=== PATIENT | female | born 1965 | race Caucasian/White ===

== ENCOUNTER 2021-07-05 14:57 | Observation (INO) ==
[2021-07-05] MEDS ORDERED: Aspirin 81 MG TAB.CHEW PO ONE (16:01)
[2021-07-05] MEDS ORDERED: 0.9 % Sodium Chloride 500 ML IVC ONE (16:01)
[2021-07-05 17:12] LABS: Basophils # 0.1 K/mcL (0.0-0.2); Basophils % 0.5 %; Eosinophils # 0.1 K/mcL (0.0-0.6); Eosinophils % 1.2 %; Hematocrit 39.3 % (35.3-44.9); Hemoglobin 12.3 g/dL (11.5-15.4); Immature Granulocytes % 0.3 % (0-4); Lymphocytes # 1.2 K/mcL (0.6-4.6); Lymphocytes % 10.7 %; Mean Corpuscular HGB Conc 31.3 g/dL (31.6-35.5); Mean Corpuscular Hemoglobin 27.8 pg (28.0-33.3); Mean Corpuscular Volume 88.9 fL (83.0-100.0); Mean Platelet Volume 11.5 fL (9.4-12.4); Monocytes # 0.3 K/mcL (0.0-1.3); Monocytes % 2.9 %; Neutrophils # 9.1 K/mcL (1.6-8.9); Platelet Count 249 K/mcL (140-400); Red Blood Count 4.42 M/mcL (3.82-4.97); Red Cell Distribution Width 15.1 % (11.5-14.5); Segmented Neutrophils % 84.4 %; White Blood Count 10.8 K/mcL (4.3-11.1)
[2021-07-05 17:16] LABS: ABG Base Excess 2 mEq/L (-2 to 3); ABG HCO3 26 mEq/L (21-27); ABG Oxygen Saturation 96 % (95-98); ABG PCO2 38 mmHg (35-45); ABG PH 7.44 pH Units (7.32-7.45); ABG PO2 80 mmHg (85-104); ABG TCO2 27 mEq/L (20-26)
[2021-07-05 17:33] LABS: Alanine Aminotransferase 13 Units/L (7-52); Albumin 4.2 g/dL (3.5-5.7); Albumin/Globulin Ratio 1.6 (1.1-2.2); Alkaline Phosphatase 74 Units/L (34-104); Aspartate Amino Transferase 20 Units/L (13-39); BUN/Creatinine Ratio 31 (6-26); Bilirubin,Direct 0.1 mg/dL (0.0-0.2); Bilirubin,Indirect 0.6 mg/dL (0.0-1.0); Bilirubin,Total 0.7 mg/dL (0.3-1.0); Blood Urea Nitrogen 22 mg/dL (6-20); Carbon Dioxide 29 mEq/L (23-29); Chloride 104 mEq/L (98-107); Globulin 2.7 g/dL (2.4-3.5); Glucose 114 mg/dL (70-105); Lipase 11 Units/L (11-82); Osmolality,Calculated 300 (280-300); Sodium 143 mEq/L (136-145); Total Protein 6.9 g/dL (6.4-8.9); Troponin I 0.57 ng/mL (< 0.04); eGFR For African Americans > 60 (> 60); eGFR For Non-African Americans > 60 (> 60)
[2021-07-05] MEDS ORDERED: *HR* Heparin 5,000 UNIT/ML VIAL IVP PRN ×2 (17:42)
[2021-07-05] MEDS ORDERED: *HR* Heparin 5,000 UNIT/ML VIAL IVP ONE (17:42)
[2021-07-05] MEDS ORDERED: Heparin 25,000UNIT/250ML 1/2NS 25,000 UNIT/250 ML IV.SOLN IVC SCH (17:45)
[2021-07-05] MEDS ORDERED: Nitroglycerin 0.4 MG TAB.SUBL SL PRN (17:48)
[2021-07-05] MEDS ORDERED: Nitroglycerin 1 INCH/GM PACKET TP ONE (17:48)
[2021-07-05 17:52] LABS: Prothrombin Time 11.2 Seconds (9.4-12.1)
[2021-07-05 17:54] LABS: Activated Partial Thrombo Time 34.3 Seconds (26.0-36.0)
[2021-07-05] MEDS ORDERED: Acetaminophen 325 MG TABLET PO ONE (18:50)
[2021-07-05] MEDS ORDERED: Isovue-370 500 ML BOTTLE IVP ONE (19:55)
[2021-07-05] MEDS ORDERED: Naloxone 0.4 MG/ML INJ IVP PRN (20:04)
[2021-07-05] MEDS ORDERED: Ondansetron 4 MG/2 ML VIAL IVP PRN (20:04)
[2021-07-05] MEDS ORDERED: Acetaminophen 325 MG TABLET PO PRN (20:04)
[2021-07-05] MEDS ORDERED: Perflutren Lipid Microsphere 1.3 ML in 0.9 % Sodium Chloride 8.7 ML IVP PRN (20:10)
[2021-07-05] MEDS: Morphine Sulfate 2 MG/ML SYRINGE IVP PRN (21:37)
[2021-07-05] MEDS: Gabapentin 300 MG CAPSULE PO SCH (21:37)
[2021-07-05] MEDS: lisinopriL 20 MG TABLET PO SCH (21:37)
[2021-07-05 23:08] LABS: Heparin anti-factor XA UFH 0.33 IU/mL (0.30-0.70); Prothrombin Time 11.4 Seconds (9.4-12.1)
[2021-07-05] MEDS ORDERED: *HR* LORazepam 2 MG/ML VIAL IVP ONE (23:41)
[2021-07-06 02:17] LABS: Folate > 22.3 ng/mL (3.0-16.0); Vitamin B12 358 pg/mL (250-1100)
[2021-07-06 06:23] LABS: Hematocrit 41.5 % (35.3-44.9); Hemoglobin 13.1 g/dL (11.5-15.4); Mean Corpuscular HGB Conc 31.6 g/dL (31.6-35.5); Mean Corpuscular Hemoglobin 27.9 pg (28.0-33.3); Mean Corpuscular Volume 88.5 fL (83.0-100.0); Mean Platelet Volume 11.2 fL (9.4-12.4); Platelet Count 283 K/mcL (140-400); Red Blood Count 4.69 M/mcL (3.82-4.97); Red Cell Distribution Width 15.2 % (11.5-14.5); White Blood Count 14.4 K/mcL (4.3-11.1)
[2021-07-06 06:50] LABS: Troponin I 2.62 ng/mL (< 0.04)
[2021-07-06 07:06] LABS: BUN/Creatinine Ratio 24 (6-26); Blood Urea Nitrogen 16 mg/dL (6-20); Calcium 9.1 mg/dL (8.6-10.3); Carbon Dioxide 27 mEq/L (23-29); Chloride 103 mEq/L (98-107); Chol/HDL Ratio 2.6 (0-4.9); Cholesterol 195 mg/dL (< 200); Ferritin 26 ng/mL (10-120); Glucose 90 mg/dL (70-105); HDL Cholesterol 74 mg/dL (40-59); Iron 76 mcg/dL (50-170); LDL Cholesterol,Calculated 109 mg/dL (< 100); Magnesium 1.8 mg/dL (1.6-2.6); Osmolality,Calculated 293 (280-300); Potassium 3.4 mEq/L (3.5-5.1); Sodium 141 mEq/L (136-145); Thyroid Stimulating Hormone 6.155 mcIU/mL (0.340-5.600); Triglycerides 61 mg/dL (< 150); eGFR For African Americans > 60 (> 60); eGFR For Non-African Americans > 60 (> 60)
[2021-07-06] MEDS: lisinopriL 20 MG TABLET PO SCH ×2 (08:36→20:25)
[2021-07-06] MEDS: Aspirin Enteric Coated 81 MG Tablet PO SCH (08:36)
[2021-07-06] MEDS: Gabapentin 300 MG CAPSULE PO SCH ×2 (08:36→20:25)
[2021-07-06 09:28] LABS: Influenza A PCR Negative (Negative); Influenza B PCR Negative (Negative); Resp. Syncytial Virus PCR Negative (Negative)
[2021-07-06 10:07] LABS: SARS-CoV-2 by PCR (In House) Negative (Negative)
[2021-07-06] MEDS ORDERED: Nitroglycerin 1,000 MCG/5 ML VIAL IV ONE (10:35)
[2021-07-06] MEDS ORDERED: ISOVUE-370 200 ML INFUS..BTL ONE (10:35)
[2021-07-06] MEDS ORDERED: Heparin 1,000 UNITS/500 mL 500 ML ONE (10:35)
[2021-07-06] MEDS ORDERED: *HR* FentaNYL (PF) 100 MCG/2 ML VIAL ONE (10:35)
[2021-07-06] MEDS ORDERED: *HR* Midazolam HCl 2 MG/2 ML VIAL ONE (10:35)
[2021-07-06] MEDS ORDERED: *HR* Heparin 10,000 UNIT/10 ML VIAL ONE (10:35)
[2021-07-06] MEDS ORDERED: 0.9 % Sodium Chloride 2,000 ML ONE (10:35)
[2021-07-06] MEDS: Metoprolol XL (24 HR) Succ 25 MG TAB.ER.24H PO SCH (10:44)
[2021-07-06 12:54] LABS: Estimated Average Glucose 120 mg/dl; Hemoglobin A1C 5.8 %
[2021-07-06] MEDS: Spironolactone 25 MG TABLET PO SCH (17:13)
[2021-07-06] MEDS: Morphine Sulfate 2 MG/ML SYRINGE IVP PRN (20:26)
[2021-07-06] MEDS ORDERED: *HR* Heparin 5,000 UNIT/ML VIAL SQ SCH (22:15)
[2021-07-07 01:18] LABS: Hematocrit 37.7 % (35.3-44.9); Hemoglobin 11.9 g/dL (11.5-15.4); Mean Corpuscular HGB Conc 31.6 g/dL (31.6-35.5); Mean Corpuscular Hemoglobin 27.9 pg (28.0-33.3); Mean Corpuscular Volume 88.3 fL (83.0-100.0); Mean Platelet Volume 11.4 fL (9.4-12.4); Platelet Count 234 K/mcL (140-400); Red Blood Count 4.27 M/mcL (3.82-4.97); Red Cell Distribution Width 15.2 % (11.5-14.5); White Blood Count 10.8 K/mcL (4.3-11.1)
[2021-07-07 02:10] LABS: BUN/Creatinine Ratio 26 (6-26); Blood Urea Nitrogen 20 mg/dL (6-20); Calcium 8.4 mg/dL (8.6-10.3); Carbon Dioxide 23 mEq/L (23-29); Chloride 108 mEq/L (98-107); Glucose 97 mg/dL (70-105); Osmolality,Calculated 297 (280-300); Potassium 3.8 mEq/L (3.5-5.1); Sodium 142 mEq/L (136-145); eGFR For African Americans > 60 (> 60); eGFR For Non-African Americans > 60 (> 60)
[2021-07-07 06:58] VITALS: PULSE 75
[2021-07-07] MEDS: lisinopriL 20 MG TABLET PO SCH (08:55)
[2021-07-07] MEDS: Gabapentin 300 MG CAPSULE PO SCH (08:55)
[2021-07-07] MEDS: Spironolactone 25 MG TABLET PO SCH (08:55)
[2021-07-07] MEDS: Aspirin Enteric Coated 81 MG Tablet PO SCH (08:56)
[2021-07-07] MEDS: Metoprolol XL (24 HR) Succ 25 MG TAB.ER.24H PO SCH (08:56)
[2021-07-07 11:14] VITALS: BP 159/86; TEMP 98.4; O2SAT 96
[2021-07-07] MEDS ORDERED: *HR* Heparin 5,000 UNIT/ML VIAL SQ SCH (12:00)
[2021-07-08 07:07] LABS: % Iron Saturation 19 % (15-50); Transferrin 293 mg/dL (200-400)
== END 2021-07-07 13:27 | disposition home or self-care (01) ==
LOC: 2ANU 14:57 → EMEROOARM 14:57 → SUATTDRO 19:29 → 2ANU 20:31
PROVIDERS: ADMIT Internal Medicine; ATTEND Internal Medicine